=== PATIENT | female | born 1995 | race Caucasian/White ===

== ENCOUNTER 2025-08-30 14:24 | Emergency (ER) | payer BC, SELFPAY ==
[2025-08-30 14:24] VITALS: BP 121/83
[2025-08-30 14:25] VITALS: BP 144/98
--- NOTE | 2025-08-30 14:42 | ED.GENMED ---
History of Present Illness
General
Chief Complaint: Problems
Source: patient
Exam Limitations: none
Time Seen by Provider: 08/30/25 14:34
History of Present Illness
History of Present Illness:
30-year-old female , 15 weeks is concerned about the viability. Last ultrasound was at 12 weeks. She does small subchorionic hemorrhage at that time no other issues. via IVF. She could not get the heart rate
this morning at work and feels like there is something off. However she denies specific complaints denying acute chest pain shortness of breath fever chills vaginal bleeding discharge urinary symptoms etc.
Essentially here for concerns of viability
Past History
Past History
ED Past Surgical History: Gynecological (Breast reduction)
Review of Systems
Review of Systems
All Other Systems: Not applicable
Constitutional: Denies fever or chills
Respiratory: Reports no symptoms
Cardiac: Reports no symptoms
ABD/GI: Denies abdominal pain
: Denies dysuria, frequency, bleeding or discharge
Phy Exam
Physical Exam
Physical Exam:
GENERAL: Alert and oriented in no apparent distress
EYE: Orbits normal.
NECK: Supple
CARDIAC: Regular rate and rhythm without any obvious murmurs.
LUNGS: Clear breath sounds,normal
ABDOMEN: Soft, without focal tenderness or distention
NEUROLOGICAL: Alert and oriented , grossly non-focal
SKIN: Warm and dry
PSYCH: Normal and appropriate interaction.
Course
Orders/Labs/Results
Orders:
Orders
08/30/25 14:41
US Limited Urgent
Reason For Exam: G1, P0. 15 weeks. No heart rate/ viability
Vital Signs
Initial and Last Documented VS:
Initial Vital Signs
BP
121/83
08/30/25 14:24
Last Documented Vital Signs
Temp Pulse Resp BP Pulse Ox
97.6 F 108 18 121/83 99
08/30/25 14:25 08/30/25 14:25 08/30/25 14:25 08/30/25 16:45 08/30/25 14:44
Information
Weeks gestation: Weeks: (15)
Location: Location: ([facility])
MDM/Problems Addressed
Differential Diagnosis Includes:
Patient essentially here for viability concerns. Ultrasound pending. Nothing clinically or by history to support any infectious issue, PE, cardiac issue, acute abdominal issue or other complaints.
*Pulse Oximetry
SaO2: 99
Oxygen Mode of Delivery: Room air
Patient hypoxic: no (99)
*Critical Care Note
Total Time (30-74mins, 75-104mins- exclusive of procedures): Not Applicable
ED Attending Note
-
Portions of this chart may have been created with voice recognition software.� Occasional wrong word or��sound alike� substitutions may have occurred due to the inherent limitations of voice recognition software.
Discharge Plan
Departure
Patient Disposition: Home (Routine Discharge)
Date of Disposition: 08/30/25
Time of Disposition: 16:34
Patient with high blood pressure during this ER visit?: Yes
Discharge Problem:
Evaluation of , Elevated blood pressure reading
Instructions: BLOOD PRESSURE
Referrals:
UNKNOWN - PT DOES,NOT KNOW [Family Provider]
Activity Restrictions/Additional Instructions:
Call your specialist tomorrow for close follow-up
Return with any concerns including abdominal pain vaginal bleeding fever chills or any other unusual symptoms or issues
Interventions
Interventions:
*Risk Screen - Suicide Last Done: 08/30/25 14:25
*General Assessment Last Done: 08/30/25 14:25
*Neglect/Abuse Screening Last Done: 08/30/25 14:25
*Nursing Disposition Last Done: 08/30/25 16:50
ED-Female Genitourinary Assessment Last Done: 08/30/25 16:49
Discharge Date and Time
Discharge Date/Time: 08/30/25 16:50
Print Language: SAUDI ARABIAN
[2025-08-30 16:45] VITALS: BP 121/83
== END 2025-08-30 16:50 | disposition home or self-care (01) ==
LOC: EMR 14:24
PROVIDERS: EMERGENCY PHYSICIAN Emergency Medicine
DX: O26.892 Other specified pregnancy related conditions, second trimester (principal); O99.891 Other specified diseases and conditions complicating pregnancy; R03.0 Elevated blood-pressure reading, without diagnosis of hypertension; O20.8 Other hemorrhage in early pregnancy; Z3A.15 15 weeks gestation of pregnancy
CPT/HCPCS: 99284; 76815